=== PATIENT | male | born 1960 | race Caucasian/White ===

== ENCOUNTER 2016-05-31 09:19 | Outpatient (CLI) ==
[2016-05-31] MEDS ORDERED: INFED 500 MG in SODIUM CHLORIDE 250 ML IV STA (10:29)
[2016-05-31] MEDS ORDERED: TYLENOL PO STA (10:30)
[2016-05-31] MEDS ORDERED: BENADRYL 25 MG in SODIUM CHLORIDE 100 ML IV STA (10:31)
[2016-05-31] MEDS ORDERED: SOLU-CORTEF 100 MG IVP STA (10:32)
[2016-05-31 14:39] VITALS: BP 144/92; TEMP 98.1
== END 2016-05-31 14:04 | disposition home or self-care (01) ==
LOC: OPMED 09:19
PROVIDERS: ATTEND Internal Medicine Hematology & Oncology
DX: D50.9 Iron deficiency anemia, unspecified (principal); K90.9 Intestinal malabsorption, unspecified
CPT/HCPCS: 96365; 96366; 96375; 99211

== ENCOUNTER 2017-02-06 08:50 | Outpatient (CLI) ==
[2017-02-06] MEDS ORDERED: TYLENOL PO STA (09:17)
[2017-02-06] MEDS ORDERED: SOLU-CORTEF 100 MG IVP STA (09:18)
[2017-02-06] MEDS ORDERED: BENADRYL 25 MG in SODIUM CHLORIDE 100 ML IV STA (09:18)
[2017-02-06] MEDS ORDERED: INFED 500 MG in SODIUM CHLORIDE 250 ML IV STA (09:18)
[2017-02-06 09:23] VITALS: BP 120/80; TEMP 98.4
== END 2017-02-06 08:51 | disposition home or self-care (01) ==
LOC: OPMED 08:50
PROVIDERS: ATTEND Internal Medicine Hematology & Oncology
DX: D50.9 Iron deficiency anemia, unspecified (principal); K90.49 Malabsorption due to intolerance, not elsewhere classified; E79.0 Hyperuricemia without signs of inflammatory arthritis and tophaceous disease; M50.30 Other cervical disc degeneration, unspecified cervical region; K21.9 Gastro-esophageal reflux disease without esophagitis; Z87.19 Personal history of other diseases of the digestive system
CPT/HCPCS: 96365; 96366; 96367

== ENCOUNTER 2017-10-23 13:26 | Outpatient (CLI) ==
--- NOTE | 2017-10-23 15:46 | DI ---
EXAM: CHEST FRONTAL AND LATERAL VIEWS HISTORY: Bronchitis. COMPARISON: None FINDINGS: Heart size and mediastinal contour within normal limits. No acute infiltrates. Normal vascularity with no pleural fluid or pneumothorax. The bony thorax has no acute finding. IMPRESSION: No acute process.
== END 2017-10-23 13:27 | disposition home or self-care (01) ==
LOC: RAD 13:26
PROVIDERS: ATTEND Family Medicine
DX: J40 Bronchitis, not specified as acute or chronic (principal)

== ENCOUNTER 2018-12-09 05:24 | Emergency (ER) ==
[2018-12-09 05:32] VITALS: BMI 26.4
[2018-12-09] MEDS ORDERED: ZOFRAN 4 MG/2 ML IVP STA (05:44)
[2018-12-09] MEDS ORDERED: SODIUM CHLORIDE 1,000 ML IV STA (05:44)
--- NOTE | 2018-12-09 05:47 | ED.PDOC ---
General <CINDA COMBS - Last Filed: 12/09/18 09:50> Stated Complaint: Patient is a 58 year old male who comes to the ER with complaints of Severe headache on the right that started off and left neck pain with associdated N/V that would not go away. Denies being exposed to the Heat. Time Seen by Physician: 05:47 Mode of Arrival: Wheelchair Information Source: Patient Nursing and Triage Documentation Reviewed and Agree: Yes Does patient meet sepsis criteria?: No System Inflammatory Response Syndrome: Not Applicable <NUVIA KENNEDY - Last Filed: 12/12/18 20:09> ED Provider: Dr. NUVIA KENNEDY Chief Complaint: Nausea/Vomiting Primary Care Provider: CINDA PRYOR Sepsis Protocol: For patient's 13 years and over: Temp is 96.8 and below OR 101 and greater Pulse >90 BPM Resp >20/minute Acutely Altered Mental Status Are patient's symptoms suggestive of a new infection, such as: -Pneumonia -Skin, Soft Tissue -Endocarditis -UTI -Bone, Joint Infection -Implantable Device -Acute Abdominal Infection -Wound Infection -Meningitis -Blood Stream Catheter Infection -Unknown Neurological Complaint Exam - Headache Complaint/Exam Onset: Gradual Duration: 2 hours Symptoms Are: Still present Timing: Constant Worst Headache Ever: No Initial Severity: Severe Current Severity: Moderate Location: Right, Temporal, Parietal, Occipital Character: Reports: Throbbing Aggravating: Reports: Bright lights Alleviating: Reports: None Associated Signs and Symptoms: Reports: Nausea, Neck pain. Denies: Dizziness, Seizure, Vomiting, Sinus pressure, Fever, Neck stiffness, Decreased LOC, Visual changes Related History: Denies: Similar episode Related Surgical History: Reports: None SAH Risk Factors: Reports: None Meningitis Risk Factors: Reports: None SDH Risk Factors: Reports: Male Temporal Arteritis Risk Factors: Reports: Over 60 years old Normal Head CT Within Last 12 Months: No Sinus Tenderness: Present: None TMJ Tenderness: Present: None Glascow Coma Scale (see protocol): 15 Meningeal Signs Positive: No Pain on Passive Flexion-Positive Kernig's: No ROM Limited In: No Limitiations Focal Weakness: Present: None Focal Sensory Loss: Present: None Gait: Normal Nystagmus Present: No Gag Reflex Present: No [id number]: Normal Findings Romberg Test Positive: No Babinski Sign: Negative Right, Negative Left Differential Diagnoses: Migraine <NUVIA KENNEDY - Last Filed: 12/12/18 20:09> Review of Systems - Review Of Systems Constitutional: Reports: No symptoms Eyes: Reports: No symptoms Ears, Nose, Mouth, Throat: Reports: No symptoms Respiratory: Reports: No symptoms Cardiac: Reports: No symptoms GI: Reports: Nausea : Reports: No symptoms Musculoskeletal: Reports: Neck pain Skin: Reports: No symptoms Neurological: Reports: Anxiety, Headache Endocrine: Reports: No symptoms Hematologic/Lymphatic: Reports: No symptoms All Other Systems: Reviewed and Negative <NUVIA KENNEDY Last Filed: 12/12/18 20:09> Past Medical History - Past Medical History Previously Healthy: Yes Endocrine: Reports: None Cardiovascular: Reports: None Respiratory: Reports: None Hematological: Reports: None Gastrointestinal: Reports: GERD Genitourinary: Reports: None Neuro/Psych: Reports: Migraine Musculoskeletal: Reports: None Cancer: Reports: None - Surgical History General Surgical History: Reports: Other (partial small bowel resection) - Family History Family History: Reports: Unknown - Social History Smoking Status: Current every day smoker, Heavy tobacco smoker Hx Substance Use: No Alcohol Screening: None - Immunizations Tetanus Shot up to Date: Yes <NUVIA KENNEDY Filed: 12/12/18 20:09> Physical Exam - Physical Exam Appearance: Ill-appearing Ill-appearing: Moderate Pain Distress: Severe Eyes: JACINTO, EOMI, Conjunctiva clear Neck: Supple Respiratory: Airway patent, Breath sounds clear, Breath sounds equal, Respirations nonlabored Cardiovascular: RRR, Pulses normal, No rub, No murmur GI/: Soft, Nontender, No masses, Bowel sounds normal, No Organomegaly Musculoskeletal: Normal strength, ROM intact, No edema, No calf tenderness Skin: Warm, Dry, Normal color Neurological: Sensation intact, Motor intact, Alert, Oriented Psychiatric: Anxious <NUVIA KENNEDY Filed: 12/12/18 20:09> - NIH Stroke Scale 1a. Level of Consciousness: 0=Alert and keenly responsive 1b. Level of Consciousness Questions: 0=Answers correctly to two questions 1c. Level of Consciousness Commands: 0=Performs two tasks correctly 2. Best Gaze: 0=Normal 3. Visual: 0=No visual loss 4. Facial Palsy: 0=Normal 5a. Motor Left Arm: 0=No drift,arm holds 90 degrees for 10 sec., leg 30 degrees for 5 sec. 5b. Motor Right Arm: 0=No drift,arm holds 90 degrees for 10 sec., leg 30 degrees for 5 sec. 6a. Motor Left Le=No drift,arm holds 90 degrees for 10 sec., leg 30 degrees for 5 sec. 6b. Motor Right Le=No drift,arm holds 90 degrees for 10 sec., leg 30 degrees for 5 sec. 7. Limb Ataxia: 0=Absent 8. Sensory: 0=Normal Stroke Scale Total: 0 <NUVIA KENNEDY - Last Filed: 12/12/18 20:09> Interpretation - Radiology Interpretation Radiology Interpretation By: Radiologist Radiology Results: Negative Exam Interpreted: CT Scan (head and C spine ) Radiology Interpretation By: Radiologist Radiology Results: Negative Exam Interpreted: Portable CXR - EKG Interpretation Rate: Normal Rhythm: Sinus Ectopy: None [place]: NL Interpretation: no acute MS <NUVIA KENNEDY - Last Filed: 12/12/18 20:09> Re-Evaluation - Re-Evaluation Time of Re-Evaluation: 06:45 Status: Improved (mildly with 1 mg of Dilaudid ) Vital Signs Stable: Yes <NUVIA KENNEDY - Last Filed: 12/12/18 20:09> Physician Notification - Case Discussed Endorsed To/Discussed With: Sam Time of Discussion: 07:07 <NUVIA KENNEDY - Last Filed: 12/12/18 20:09> Critical Care Note - Critical Care Note Total Time (mins): 40 <NUVIA KENNEDY - Last Filed: 12/12/18 20:09> Course - Course Hematology/Chemistry: 12/09/18 05:45 12/09/18 05:45 <CINDA COMBS - Last Filed: 12/09/18 09:50> - Course Hematology/Chemistry: 12/09/18 05:45 12/09/18 05:45 <NUVIA KENNEDY - Last Filed: 12/12/18 20:09> - Course Orders, Labs, Meds: Lab Review 12/09/18 12/09/18 05:45 05:45 WBC 6.71 RBC 4.53 L Hgb 14.3 Hct 40.5 L MCV 89.4 MCH 31.6 H MCHC 35.3 RDW Coeff of Anna 12.1 Plt Count 270 Immature Gran % (Auto) 0.3 Neut % (Auto) 69.1 Lymph % (Auto) 19.7 Bay % (Auto) 8.3 Eos % (Auto) 1.9 Baso % (Auto) 0.7 Immature Gran # (Auto) 0.0 Neut # (Auto) 4.6 Lymph # (Auto) 1.3 Bay # (Auto) 0.6 Eos # (Auto) 0.1 Baso # (Auto) 0.1 Sodium 137.3 Potassium 4.31 Chloride 102.1 Carbon Dioxide 20.2 L Anion Gap 19.31 BUN 17.3 Creatinine 0.69 Estimated GFR (MDRD) 117.00 BUN/Creatinine Ratio 25.07 Glucose 122.8 H Calcium 8.75 Total Bilirubin 0.36 AST 22.1 ALT 23.5 Alkaline Phosphatase 62.6 Total Creatine Kinase 56.6 Troponin I < 0.012 Total Protein 7.20 Albumin 4.45 Globulin 2.75 Albumin/Globulin Ratio 1.61 Orders Category Date Time Status EKG-(ED ONLY) Stat CARDIO 12/09/18 05:44 Completed ED IV/MEDIPORT/POWERPORT .ONCE EMERGENCY 12/09/18 05:44 Active CBC W/ AUTO DIFF Stat LAB 12/09/18 05:45 Completed COMPREHENSIVE METABOLIC PANEL Stat LAB 12/09/18 05:45 Completed CREATINE KINASE Stat LAB 12/09/18 05:45 Completed TROPONIN I Stat LAB 12/09/18 05:45 Completed 0.9 % Sodium Chloride [Saline Flush] MEDS 12/09/18 05:44 Discontinued 1 syr IVF PRN PRN Hydromorphone HCl [Dilaudid 0.5 mg/0.5 ml Syringe] MEDS 12/09/18 06:42 Discontinued 0.5 mg IVP ONCE STA Hydromorphone HCl [Dilaudid 1 mg/ml Syringe] MEDS 12/09/18 05:54 Discontinued 1 mg IVP ONCE STA Metoclopramide HCl [Reglan] MEDS 12/09/18 06:32 Discontinued 10 mg IVP ONCE STA Ondansetron HCl/Pf [Zofran 4 mg/2 ml] MEDS 12/09/18 05:44 Discontinued 4 mg IVP ONCE STA Sodium Chloride 0.9% [Sodium Chloride] 1,000 ml MEDS 12/09/18 05:44 Discontinued IV 125 mls/hr CHEST, 1V AP ONLY Stat RADS 12/09/18 05:[address] CERVICAL SPINE W/O CONTRAST Stat RADS 12/09/18 05:[address] HEAD W/O CONTRAST Stat RADS 12/09/18 05:44 Completed Medications Discontinued Medications Generic Name Dose Route Start Last Admin Trade Name Freq PRN Reason Stop Dose Admin Hydromorphone HCl 1 mg 12/09/18 05:54 12/09/18 05:57 Dilaudid 1 Mg/Ml Syringe IVP 12/09/18 05:55 1 mg ONCE STA Administration Hydromorphone HCl 0.5 mg 12/09/18 06:42 12/09/18 06:48 Dilaudid 0.5 Mg/0.5 Ml Syringe IVP 12/09/18 06:43 0.5 mg ONCE STA Administration Sodium Chloride 1,000 mls @ 125 mls/hr 12/09/18 05:44 12/09/18 05:55 Sodium Chloride IV 12/09/18 13:43 125 mls/hr .Q8H STA Administration Metoclopramide HCl 10 mg 12/09/18 06:32 12/09/18 06:38 Reglan IVP 12/09/18 06:33 10 mg ONCE STA Administration Ondansetron HCl 4 mg 12/09/18 05:44 12/09/18 05:56 Zofran 4 Mg/2 Ml IVP 12/09/18 05:45 4 mg ONCE STA Administration Sodium Chloride 1 syr 12/09/18 05:44 12/09/18 06:38 Saline Flush IVF 1 syr PRN PRN Administration To flush IV Vital Signs: Temp Pulse Resp BP Pulse Ox 12/09/18 06:25 97.8 F 57 L 24 154/100 H 96 12/09/18 05:29 97.6 F 58 L 18 160/92 H 97 Departure - Departure Time of Disposition: 10:40 Pt referred to PMD for follow-up: Yes IPMP verified?: No Transfer Form Completed: Yes Disposition Discussed With: Patient, Family <CINDA COMBS - Last Filed: 12/09/18 09:50> <NUVIA KENNEDY - Last Filed: 12/12/18 20:09> - Departure Disposition: HOME SELF-CARE Discharge Problem: Cephalgia, Cervical paraspinal muscle spasm Instructions: Migraine Headache (ED), Tension Headache (ED) Condition: Stable Additional Instructions: Rest Stay out of heat Remail well dydrated Take ibuprifen as needed See PCp this next week Allergies/Adverse Reactions: Allergies morphine Adverse Reaction (Severe, Verified 12/09/18 05:31) Difficulty Breathing Home Medications: Ambulatory Orders Esomeprazole Magnesium [Nexium] 40 mg PO QAM 10/03/13 Aspirin [Aspirin EC] 81 mg PO DAILY 12/09/18 Aspirin/Acetaminophen/Caffeine [Excedrin Extra Strength Caplet] 1 tab PO DAILY 12/09/18 Cyanocobalamin (Vitamin B-12) [B-12] 500 mcg PO BID 12/09/18 Additional Information: 0975 Patient awakened. Feeling much better. Spontaneous Void, Tolerating ice chips. Denies additional pain.Spouse remembers yesterday that he experienced discomfort across shoulders and into neck after driving a [employer] bus/van to [facility]. Currently denies nausea or worsening pain. Requesting discharge to home (CINDA COMBS)
[2018-12-09] MEDS ORDERED: DILAUDID 1 MG/ML SYRINGE IVP STA (05:54)
[2018-12-09 06:31] VITALS: BP 154/100; TEMP 97.8
[2018-12-09] MEDS ORDERED: REGLAN IVP STA (06:32)
[2018-12-09] MEDS ORDERED: DILAUDID 0.5 MG/0.5 ML SYRINGE IVP STA (06:42)
--- NOTE | 2018-12-09 06:46 | CT ---
EXAM: CT head without contrast 12/09/2018. Sagittal and coronal reformatted images obtained HISTORY: Headache COMPARISON: None. FINDINGS: There is no evidence of intracranial hemorrhage. The midline is maintained. There is no h ydrocephalus. No cerebellar tonsillar ectopia. Evaluation of the calvarium shows no fracture. Th e mastoid air cells are normally pneumatized. IMPRESSION: No acute intracranial abnormality.
--- NOTE | 2018-12-09 06:52 | CT ---
EXAM: CT cervical spine without intravenous contrast 12/09/2018. Sagittal and coronal reformatted i mages obtained HISTORY: Neck pain COMPARISON: None. FINDINGS: Normal anatomic alignment is maintained. Vertebral bodies appear intact. The facet joint s align normally. The prevertebral soft tissues appear within normal limits. Multilevel chronic degenerative disc disease. There is no fracture or subluxation at any level. IMPRESSION: No acute osseous abnormality of the cervical spine.
--- NOTE | 2018-12-09 06:55 | DI ---
EXAM: Chest, single view, 12/09/2018 HISTORY: Chest pain COMPARISON: 10/23/2017 FINDINGS / IMPRESSION: Cardiomediastinal countours appear stable. There is no focal pulmonary conso lidation. No pleural effusion or pneumothorax. No acute cardiopulmonary process.
== END 2018-12-09 10:05 | disposition home or self-care (01) ==
LOC: ED 05:24
DX: R51 Headache (principal); M54.2 Cervicalgia; M62.830 Muscle spasm of back; R11.2 Nausea with vomiting, unspecified; F17.210 Nicotine dependence, cigarettes, uncomplicated
CPT/HCPCS: 36415; 80053; 82550; 84484; 85025; 93005; 93010; 96361; 96374; 96375; 96376; 99283